=== PATIENT | male | born 1985 | race Caucasian/White ===

== ENCOUNTER 2017-05-26 01:49 | Emergency (ER) | payer MEDICAID ==
[~2017-05-26] VITALS: Ht 177.8 cm; Wt 73.0 kg
[2017-05-26 01:53] VITALS: Ht 177.8 cm; Wt 73.0 kg
[2017-05-26] MEDS ORDERED: DIPHTH/TET/ACEL PERTUSS (ADULT) 0.5 ML VIAL IM* ONE (03:00)
[2017-05-26] MEDS ORDERED: IBUP-1542 PO (03:06)
[2017-05-26] MEDS ORDERED: CEPH-443 PO (03:06)
--- NOTE | 2017-05-26 03:14 | ERD ---
ER Documentation Chief Complaint Date/Time DATE: 05/26/17 TIME: 03:07 Chief Complaint penile laceration after heavy sexual activity HPI 31 year male presents to emergency department for complaints of a laceration wound on the foreskin after having sexual intercourse with whitish exudate. Patient is complaining of pain on affected area sharp pain 4/10 scale worse upon touching the area. Patient's wound was bleeding was controlled afterwards. Patient did not take any medications to help with pain. ROS All systems reviewed and are negative except as per history of present illness. Medications Home Meds Active Scripts Ibuprofen* (Motrin*) 600 Mg Tab, 600 MG PO Q6H Y for PAIN AND OR ELEVATED TEMP, #30 TAB Prov:MARIE POPE [employer] WORK[employer] 05/26/17 Cephalexin* (Keflex*) 500 Mg Capsule, 500 MG PO QID for 10 Days, CAP Prov:MARIE POPE [employer] WORK[employer] 05/26/17 Allergies Allergies: Coded Allergies: No Known Allergy (Unverified , 06/06/12) PMhx/Soc Medical and Surgical Hx: pt denies Medical Hx, pt denies Surgical Hx History of Surgery: No Anesthesia Reaction: No Hx Neurological Disorder: No Hx Respiratory Disorders: No Hx Cardiac Disorders: No Hx Psychiatric Problems: No Hx Miscellaneous Medical Probl: No Hx Alcohol Use: No Hx Substance Use: No Hx Tobacco Use: No Smoking Status: Never smoker FmHx Family History: No coronary disease, No diabetes, No other Physical Exam Vitals Vital Signs Date Time Temp Pulse Resp B/P Pulse Ox O2 Delivery O2 Flow Rate FiO2 05/26/17 01:53 97.9 101 20 158/85 100 Physical Exam GENERAL: The patient is well developed and appropriate for usual state of health, in no apparent distress. CHEST: Clear to auscultation bilaterally. There are no rales, wheezes or rhonchi. HEART: Regular rate and rhythm. No murmurs, clicks, rubs or gallops. No S3 or S4. ABDOMEN: Soft, nontender and nondistended. Good bowel sounds. No rebound or guarding. No gross peritonitis. No gross organomegaly or masses. No Jackson sign or McBurney point tenderness. BACK: No midline or flank tenderness. EXTREMITIES: Equal pulses bilaterally. There is no peripheral clubbing, cyanosis or edema. No focal swelling or erythema. Full range of motion. Grossly neurovascularly intact. NEURO: Alert and oriented. Cranial nerves 2-12 intact. Motor strength in all 4 extremities with 5/5 strength. Sensation grossly intact. Normal speech and gait. SKIN: noted skin avulsion of the foreskin, bleeding controlled at this time. Mild tenderness on palpation, no swelling noted. There is no apparent rash or petechia. The skin is warm and dry. HEMATOLOGIC AND LYMPHATIC: There is no evidence of excessive bruising or lymphedema. No gross cervical, axillary, or inguinal lymphadenopathy. Results 24 hrs Current Medications Medications (Trade) Dose Ordered Sig/Muriel Route PRN Reason Start Time Stop Time Status Last Admin Dose Admin Diphtheria/ Tetanus/Acell Pertussis (Adacel) 0.5 ml ONCE ONCE IM* 05/26/17 03:00 05/26/17 03:01 DC Tdap was given to prevent tetanus. Patient tolerated medication well. Procedures/MDM Medical decision making: Patient's symptoms most likely consistent with a skin avulsion laceration wound of the foreskin. No symptoms of swelling. Bleeding is controlled at this time. Skin referred not necessary at this time. Prescription was given for ibuprofen for pain, Keflex to prevent infection, is advised to follow-up with primary care doctor in 2 days for wound check. Patient was advised to return to emergency department for any worsening symptoms. Disposition: Home. Stable Departure Diagnosis: Primary Impression: Penile laceration Encounter type: initial encounter Qualified Code: S31.21XA - Penile laceration, initial encounter Condition: Stable Patient Instructions: Reggie Polo CARLA MAE T. NP May 26, 2017 03:14
== END 2017-05-26 03:51 | disposition home or self-care (01) ==
LOC: FTE 01:49
DX: S31.21XA Laceration without foreign body of penis, initial encounter (principal); X58.XXXA Exposure to other specified factors, initial encounter; Y92.9 Unspecified place or not applicable; Z23 Encounter for immunization
CPT/HCPCS: 90471; 90715

== ENCOUNTER 2017-06-24 01:10 | Emergency (ER) | payer SELFPAY ==
[~2017-06-24] VITALS: Ht 165.1 cm; Wt 73.0 kg
[~2017-06-24 01:10] MED LIST: CEPH-443 PO; IBUP-1542 PO
[2017-06-24 01:29] VITALS: Ht 165.1 cm; Wt 73.0 kg
== END 2017-06-24 04:23 | disposition left against medical advice (07) ==
LOC: FTE 01:10
DX: Z53.21 Procedure and treatment not carried out due to patient leaving prior to being seen by health care provider (principal)

== ENCOUNTER 2017-08-21 22:01 | Emergency (ER) | payer MEDICAID ==
[~2017-08-21] VITALS: Ht 162.6 cm; Wt 75.7 kg
[2017-08-21 22:27] VITALS: Ht 162.6 cm; Wt 75.7 kg
[2017-08-21] MEDS ORDERED: ACETAMINOPHEN 325 MG TAB PO STA (23:06)
--- NOTE | 2017-08-21 23:06 | ERD ---
ER Documentation Chief Complaint Chief Complaint hit head 3 days ago with wood, now feeling dizzy and headache HPI 32 year old male patient reports that he was at work and stepped on wood and toe opposite end hit him on the left side of head, pt reports LOC less than a min, that he was with the owne of the hous but she did not noice and left him in the yard, pt reports decreased cervical ROM, and diziness that is triggered with movement, not present at this time. denies n/v or change in behavior ROS All systems reviewed and are negative except as per history of present illness. Medications Home Meds Active Scripts Ibuprofen* (Motrin*) 600 Mg Tab, 600 MG PO Q6H Y for PAIN AND OR ELEVATED TEMP, #30 TAB Prov:MARIE POPE NP 05/26/17 Cephalexin* (Keflex*) 500 Mg Capsule, 500 MG PO QID for 10 Days, CAP Prov:MARIE POPE NP 05/26/17 Allergies Allergies: Coded Allergies: No Known Allergy (Unverified , 08/21/17) PMhx/Soc Medical and Surgical Hx: pt denies Medical Hx, pt denies Surgical Hx History of Surgery: No Anesthesia Reaction: No Hx Neurological Disorder: No Hx Respiratory Disorders: No Hx Cardiac Disorders: No Hx Psychiatric Problems: No Hx Miscellaneous Medical Probl: No Hx Alcohol Use: Yes Hx Substance Use: No Hx Tobacco Use: No Smoking Status: Never smoker Physical Exam Vitals Vital Signs Date Time Temp Pulse Resp B/P Pulse Ox O2 Delivery O2 Flow Rate FiO2 08/21/17 22:27 98.1 82 18 143/83 100 Physical Exam Const: Well-nourished well hydrated well-appearing no acute distress Head: Atraumatic, no laceration, contusion, or abrasion Eyes: Normal Conjunctiva no raccoon eyes ENT: Normal External Ears, no hemotympanum, Nose and Mouth. Neck: Abnormal range of motion with rotation to the left Resp: Cardio: Abd: Skin: No petechiae or rashes lesion, abrasion, or ecchymosis Back: Ext: Neuro: Alert and oriented Face: EOMI, face and pharynx with normal sensation and function Motor: Normal strength throughout Sensation: Normal sensation throughout Speech: Normal Cerebel: Normal coordination Normal gait Normal finger to nose Psych: Normal Mood and Affect Result Diagram: 08/21/17 2330 08/21/17 2330 Results 24 hrs Laboratory Tests Test 08/21/17 23:30 White Blood Count 8.610^3/ul Red Blood Count 4.7810^6/ul Hemoglobin 15.8g/dl Hematocrit 44.6% Mean Corpuscular Volume 93.3fl Mean Corpuscular Hemoglobin 33.1pg Mean Corpuscular Hemoglobin Concent 35.4g/dl Red Cell Distribution Width 12.0% Platelet Count 26337^3/UL Mean Platelet Volume 8.8fl Neutrophils % 68.1% Lymphocytes % 21.4% Monocytes % 7.9% Eosinophils % 1.9% Basophils % 0.5% Nucleated Red Blood Cells % 0.0/100WBC Neutrophils # 5.910^3/ul Lymphocytes # 1.910^3/ul Monocytes # 0.710^3/ul Eosinophils # 0.210^3/ul Basophils # 0.010^3/ul Nucleated Red Blood Cells # 0.010^3/ul Prothrombin Time 12.4Sec Prothrombin Time Ratio 1.0 INR International Normalized Ratio 0.92 Activated Partial Thromboplast Time 28.1Sec Sodium Level 142mmol/L Potassium Level 3.8mmol/L Chloride Level 104mmol/L Carbon Dioxide Level 28mmol/L Anion Gap 14 Blood Urea Nitrogen 20mg/dl Creatinine 0.73mg/dl Glucose Level 130mg/dl Calcium Level 9.1mg/dl Current Medications Medications (Trade) Dose Ordered Sig/Muriel Route PRN Reason Start Time Stop Time Status Last Admin Dose Admin Acetaminophen (Tylenol Tab) 650 mg ONCE STAT PO 08/21/17 23:06 08/21/17 23:09 DC 08/21/17 23:33 Interpretation text CBC shows no evidence of hemorrhage or infection Chemistry shows no evidence of significant electrolyte abnormalities or renal insufficiency Liver function tests shows no evidence of acute biliary or hepatic dysfunction Coagulation study showed no concerning coagulpathy Procedures/MDM PROCEDURE: CT Brain without contrast. CLINICAL INDICATION: Dizziness.. Headache. TECHNIQUE: Serial axial computed tomographic images of the brain was performed on a CT scanner from the skull base through the vertex without contrast. Exam CTDlvol = 44 mGy and DLP = 720 mGy-cm. One of the following 3 dose reduction techniques were used: Automated exposure control; adjustment of the mA and/or kV according to patient size; or use of iterative reconstruction technique. COMPARISON: None available. FINDINGS: There is no fracture. The ventricles and sulci are normal in size and configuration. There is no midline shift. There are no focal parenchymal abnormalities. There is no acute stroke. No acute intracranial hemorrhage or abnormal extra-axial fluid collection. Visualized paranasal sinuses are clear. IMPRESSION: No acute intracranial abnormality. Electronically viewed and signed by .Carlos Rivera MD, MD on 08/22/2017 00:52 PROCEDURE: CT cervical spine without contrast CLINICAL INDICATION: Pain TECHNIQUE: CT scan of the cervical spine was performed on a multidetector scanner. No IV contrast was administered. Coronal and sagittal reformatted images were obtained from the axial source images. Images were reviewed on a high-resolution PACS workstation. Exam CTDlvol = 22 mGy and DLP = 465 mGy-cm. One of the following 3 dose reduction techniques were used: Automated exposure control; adjustment of the mA and/or kV according to patient size; or use of iterative reconstruction technique. COMPARISON: None available FINDINGS: There is no fracture. Alignment is maintained. There is no spondylolisthesis. There is maintenance of height of the vertebral bodies. No significant degenerative changes are noted. Bone mineralization is within normal limits. Prevertebral soft tissues are unremarkable. IMPRESSION: 1. No acute post abnormality. 2. No evidence for significant bony degenerative changes. Recommend MRI of the cervical spine for evaluation of soft tissue abnormalities when clinically appropriate. Electronically viewed and signed by .Carlos Rivera MD, MD on 08/22/2017 00:56 This pleasant 32-year-old male patient presents to emergency department for evaluation after being knocked unconscious on his job. 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 Patient reports dizziness and headaches, denies nausea, vomiting, photosensitivity, change in behavior. Patient reports vision changes, states that this is not a new change, that he wore glasses for distance in high school but not worn glasses as an adult. Emergency room course includes history and physical exam, neurovascularly intact upon upon exam, no cerebellar dysfunction, patient sent for CT brain without contrast related to the loss of consciousness, dizziness and headache, radiology impression there is no fracture, the ventricles and sulci are normal size and configuration. There is no midline shift. There is no focal parameningeal abnormality. There is no acute stroke. There is no intracranial hemorrhage or abnormal extra-axial fluid collection. Otherwise paranasal sinuses are clear. No acute intracranial abnormality. Patient has abnormal cervical spine evaluation with limited range of motion to the left. CT cervical spine no acute post abnormality. There is no fracture, alignment is maintained. There is no spondylolysis, there is maintenance of height of the vertebral body. No significant degenerative changes are noted. Bone mineralization is within normal limits. Prevertebral soft tissue is unremarkable. Visual acuity without correction right eye 20/200, left eye 20/ 200, both eyes 20/200. Diagnostic laboratory findings are negative for hemorrhage, infection, electrolyte imbalance, renal insufficiency, hepatitis, blood dyscrasia. Plan to discharge patient home with diagnosis of head contusion, treat with ibuprofen, pain treat with Valium, 5 mg 1 tab p.o. every 8 hours as needed count of 10 given. Patient instructed to follow-up with ophthalmology for ophthalmic exam in glasses. Patient instructed no driving until cleared by ophthalmology. Demographics for ophthalmic offices provided. Patient is stable with no new complaints during ER course, clinically there is no current evidence to suggest meningitis, sepsis, intracranial bleed, subdural hematoma, basilar skull fracture, diabetes, or any other emergent condition appearing to require further evaluation or hospitalization. I feel the patient is stable for discharge at this time. I have discussed results, examination findings, the treatment plan with the patient and family present prior to discharge. Indications for emergent reevaluation, side effects of medication were also discussed. All questions were answered. Patient verbalizes understanding and agrees with plan of care. Departure Diagnosis: Primary Impression: Head contusion Encounter type: initial encounter Contusion of head detail: other part of head Qualified Code: S00.83XA - Contusion of other part of head, initial encounter Additional Impression: Neck pain on left side Condition: Good Patient Instructions: Back And Neck Pain, General, Contusion, Hand Referrals: [facility] Additional Instructions: Thank you for for coming to [facility] for your care today. Please ask your nurse or provider if you have questions about your care today and do not leave until all your questions have been answered. Please use any medications given as directed and follow-up with your doctor (or the doctor you were referred to) in the next 2-3 days. If you do not have a primary care doctor you may follow up at the community hospital (listed below). You may also use motrin and tylenol as needed for fever and/or pain unless instructed otherwise by your provider or nurse. Indications for more urgent follow-up have been discussed, but you may return to the Emergency Department at ANY time for any worrisome or worsening symptoms. If you have abdominal pain, please know that no test or exam you received is perfect and you should follow up within 8 hours for continued pain. If you had any imaging studies today, such as an X-Ray or CT Scan, these studies will be reviewed later by a radiologist. You will be called if there are important findings that were not identified today, so make sure the contact information you provided at registration is correct. If you received any narcotic pain control medicine today, such as Vicodin, Morphine or Dilaudid, your coordination and judgment may be affected for a number of hours. Please do not drive or operate heavy machinery, and you may want someone to assist you at home. If you were given a prescription for narcotic medication, be aware that it is very addictive- use sparingly and only if necessary. LEN DAVIS Aug 21, 2017 23:06
[2017-08-21 23:41] LABS: BASOPHILS % 0.5 % (0.0-2.0); EOSINOPHILS # 0.2 10^3/ul (0.0-0.5); EOSINOPHILS % 1.9 % (0.0-7.0); HEMATOCRIT 44.6 % (42.0-52.0); HEMOGLOBIN 15.8 g/dl (14.0-18.0); LYMPHOCYTES # 1.9 10^3/ul (0.8-2.9); LYMPHOCYTES % 21.4 % (15.0-51.0); MEAN CORPUSCULAR HEMOGLOBIN 33.1 pg (29.0-33.0); MEAN CORPUSCULAR HGB CONC 35.4 g/dl (32.0-37.0); MEAN CORPUSCULAR VOLUME 93.3 fl (82.0-101.0); MEAN PLATELET VOLUME 8.8 fl (7.4-10.4); MONOCYTE # 0.7 10^3/ul (0.3-0.9); MONOCYTES % 7.9 % (0.0-11.0); NEUTROPHIL # 5.9 10^3/ul (1.6-7.5); NEUTROPHILS % 68.1 % (39.0-77.0); PLATELET COUNT 283 10^3/UL (140-415); RED BLOOD COUNT 4.78 10^6/ul (4.70-6.10); WHITE BLOOD COUNT 8.6 10^3/ul (4.8-10.8)
[2017-08-22 00:04] LABS: INR 0.92; PROTIME 12.4 Sec (12.2-14.2)
[2017-08-22 00:05] LABS: PARTIAL THROMBOPLASTIN TIME 28.1 Sec (25.0-35.0)
[2017-08-22 00:08] LABS: CALCIUM 9.1 mg/dl (8.4-10.2); CREATININE 0.73 mg/dl (0.61-1.24); POTASSIUM 3.8 mmol/L (3.5-5.1)
--- NOTE | 2017-08-22 00:53 | RADRPT ---
PROCEDURE: CT Brain without contrast. CLINICAL INDICATION: Dizziness.. Headache. TECHNIQUE: Serial axial computed tomographic images of the brain was performed on a CT scanner fro m the skull base through the vertex without contrast. Exam CTDlvol = 44 mGy and DLP = 720 mGy-cm. One of the following 3 dose reduction techniques were used: Automated exposure control; adjustment of the mA and/or kV according to patient size; or use of iterative reconstruction technique. COMPARISON: None available. FINDINGS: There is no fracture. The ventricles and sulci are normal in size and configuration. There is no m idline shift. There are no focal parenchymal abnormalities. There is no acute stroke. No acute in tracranial hemorrhage or abnormal extra-axial fluid collection. Visualized paranasal sinuses are c lear. IMPRESSION: No acute intracranial abnormality. RPTAT: HMVK .Carlos Rivera MD, Date Time Electronically viewed and signed by .Carlos Rivera MD, on 08/22/2017 00:52 .K/
--- NOTE | 2017-08-22 00:57 | RADRPT ---
PROCEDURE: CT cervical spine without contrast CLINICAL INDICATION: Pain TECHNIQUE: CT scan of the cervical spine was performed on a multidetector scanner. No IV contrast was administered. Coronal and sagittal reformatted images were obtained from the axial source imag es. Images were reviewed on a high-resolution PACS workstation. Exam CTDlvol = 22 mGy and DLP = 465 mGy-cm. One of the following 3 dose reduction techniques were used: Automated exposure control; adjustment o f the mA and/or kV according to patient size; or use of iterative reconstruction technique. COMPARISON: None available FINDINGS: There is no fracture. Alignment is maintained. There is no spondylolisthesis. There is maintenanc e of height of the vertebral bodies. No significant degenerative changes are noted. Bone mineraliz ation is within normal limits. Prevertebral soft tissues are unremarkable. IMPRESSION: 1. No acute post abnormality. 2. No evidence for significant bony degenerative changes. Recommend MRI of the cervical spine for e valuation of soft tissue abnormalities when clinically appropriate. RPTAT: HMVK .Carlos Rivera MD, Date Time Electronically viewed and signed by .Carlos Rivera MD, on 08/22/2017 00:56 .K/
[2017-08-22] MEDS ORDERED: DIAZ-90 PO (01:33)
[2017-08-22] MEDS ORDERED: IBUP-1542 PO (01:33)
== END 2017-08-22 02:19 | disposition home or self-care (01) ==
LOC: FTE 22:01
DX: S06.0X1A Concussion with loss of consciousness of 30 minutes or less, initial encounter (principal); S00.83XA Contusion of other part of head, initial encounter; S19.9XXA Unspecified injury of neck, initial encounter; W22.8XXA Striking against or struck by other objects, initial encounter; Y92.89 Other specified places as the place of occurrence of the external cause
CPT/HCPCS: 36415; 70450; 72125; 80048; 85025; 85610; 85730; Z7502; Z7610

== ENCOUNTER 2018-04-09 22:12 | Emergency (ER) | END 2018-04-10 03:50 | disposition home or self-care (01) ==

== ENCOUNTER 2018-11-15 14:33 | Emergency (ER) | payer MEDICAID ==
[~2018-11-15] VITALS: Ht 157.5 cm; Wt 89.9 kg
[~2018-11-15 14:33] MED LIST changes: +DIAZ5TAB PO; +NAPR-985 PO
[2018-11-15 14:36] VITALS: BP 171/84; PULSE 63; RESP 20; Ht 157.5 cm; Wt 89.9 kg
[2018-11-15] MEDS ORDERED: ACETAMINOPHEN 325 MG TAB PO ONE (16:00)
[2018-11-15] MEDS ORDERED: FLUORESCEIN STRIP LEFT EYE ONE (16:00)
[2018-11-15] MEDS ORDERED: IBUP-1542 PO (17:07)
[2018-11-15] MEDS ORDERED: ERYT1OIN6 LEFT EYE (17:07)
--- NOTE | 2018-11-15 17:12 | ERD ---
ER Documentation Chief Complaint Chief Complaint Complains of bilateral eye pain with redness since today HPI 33-year-old male presents with left eye pain and redness for the last 6 days. History significant for using a weed eater and getting hit with a knot from a tree in the left eye. Denies contact lens use. Denies any visual field deficits or blurry vision. Denies any fevers. Tetanus is not up-to-date. ROS All systems reviewed and are negative except as per history of present illness. Medications Home Meds Active Scripts Erythromycin Base (Erythromycin) 1 Gm Oint...g., 1 APPLIC LEFT EYE QID for 7 Days Prov:GUANAKITO CONRAD MD 11/15/18 Ibuprofen* (Motrin*) 600 Mg Tab, 600 MG PO Q6, #20 TAB Prov:GUANAKITO CONRAD MD 11/15/18 Naproxen* (Naprosyn*) 500 Mg Tablet, 500 MG PO BID PRN for PAIN AND/OR INFLAMMATION for 10 Days, #20 TAB Prov:RYAN,LEN 04/10/18 Diazepam* (Valium*) 5 Mg Tablet, 5 MG PO Q8, #10 TAB Prov:RYAN,LEN 08/22/17 Ibuprofen* (Motrin*) 600 Mg Tab, 600 MG PO Q6, #30 TAB Prov:RYAN,LEN 08/22/17 Ibuprofen* (Motrin*) 600 Mg Tab, 600 MG PO Q6H PRN for PAIN AND OR ELEVATED TEMP, #30 TAB Prov:MARIE POPE NP 05/26/17 Cephalexin* (Keflex*) 500 Mg Capsule, 500 MG PO QID for 10 Days, CAP Prov:MARIE POPE NP 05/26/17 Allergies Allergies: Coded Allergies: No Known Allergy (Unverified , 08/21/17) PMhx/Soc Medical and Surgical Hx: pt denies Medical Hx, pt denies Surgical Hx History of Surgery: No Anesthesia Reaction: No Hx Neurological Disorder: No Hx Respiratory Disorders: No Hx Cardiac Disorders: No Hx Psychiatric Problems: No Hx Miscellaneous Medical Probl: No Hx Alcohol Use: Yes Hx Substance Use: Yes (marijuana) Hx Tobacco Use: No Smoking Status: Current some day smoker FmHx Family History: No diabetes, No coronary disease, No other Physical Exam Vitals Vital Signs Date Temp Pulse Resp B/P (MAP) Pulse Ox O2 O2 Flow FiO2 Time Delivery Rate 11/15/18 98.8 63 20 171/84 96 14:36 (113) Physical Exam Const: No acute distress Head: Atraumatic Eyes: Mild scleral redness on the left. Eyes Araceli and extraocular movements intact. Anterior chambers appeared normal. No appreciable fluorescein uptake. No foreign body on slit-lamp exam. Negative mehul sign ENT: Normal External Ears, Nose and Mouth. Neck: Full range of motion. No meningismus. Resp: Clear to auscultation bilaterally Cardio: Regular rate and rhythm, no murmurs Abd: Soft, non tender, non distended. Normal bowel sounds Skin: No petechiae or rashes Back: No midline or flank tenderness Ext: No cyanosis, or edema Neur: Awake and alert Psych: Normal Mood and Affect Results 24 hrs Current Medications Medications Dose Sig/Muriel Start Time Status Last (Trade) Ordered Route PRN Stop Time Admin Dose Reason Admin Fluorescein 1 strip ONCE ONCE 11/15/18 DC 11/15/18 Sodium LEFT EYE 16:00 15:59 ([id number] 11/15/18 16:01 p) 650 mg ONCE ONCE 11/15/18 DC 11/15/18 Acetaminophen PO 16:00 15:59 (Tylenol 11/15/18 16:01 Tab) Procedures/MDM CT orbit shows no foreign body or additional acute abnormalities. She presents with left eye pain after getting hit with a nut using a weed eater approximately 1 week ago. He has no signs or symptoms of visual deficits, visual changes. There is no signs of orbital cellulitis, foreign body, ulcerations or dendritic lesions. Signs and symptoms do not suggest retinal detachment, retinal artery ischemia, glucose,. He will be discharged home with ibuprofen, erythromycin ointment, recommendations for ophthalmology follow-up this week. He should return sooner for fevers, new or worsening symptoms. The patient was stable with no new complaints during the ER course. Clinically, there is no current evidence to suggest meningitis, sepsis, acute abdomen, pneumonia, stroke, acute coronary syndrome, pulmonary embolism, aortic dissection or any other emergent condition appearing to require further evaluation or hospitalization. Patient counseled regarding my diagnostic impression and care plan. Prior to discharge all questions answered. Pt agrees with treatment plan and understands strict return precautions. Pt is instructed to follow up with primary care provider within 24-48 hours. Precautionary instructions provided including instructions to return to the ER if not improving or for any worsening or changing symptoms or concerns. Departure Diagnosis: Primary Impression: Eye injury Encounter type: initial encounter Laterality: left Qualified Codes: S05.92XA - Unspecified injury of left eye and orbit, initial encounter Condition: Stable Patient Instructions: Contusion, Eye Referrals: [facility] Hours: Thu - Thu 9:00 AM - 5:00 PM Additional Instructions: Examines normal hoy. Cheque otro vez con red doctor primario en el proximo barreto or regresa para mas o nueva simptomas. Va al red doctor/ specialista para mas evaluacon en el proximo semana. posiblemente necesita autorizado de red doctor primario para specialista. Regresa para fiebre, o mas o nueva simptomas. GUANAKITO CONRAD MD Nov 15, 2018 17:12
== END 2018-11-15 17:49 | disposition home or self-care (01) ==
LOC: FTE 14:33
DX: S05.92XA Unspecified injury of left eye and orbit, initial encounter (principal); F17.210 Nicotine dependence, cigarettes, uncomplicated; X58.XXXA Exposure to other specified factors, initial encounter; Y92.9 Unspecified place or not applicable
CPT/HCPCS: 70480; Z7502; Z7610